=== PATIENT | female | born 1995 | race Hispanic/Latino ===

== ENCOUNTER 2017-07-09 18:27 | Inpatient (IN) | payer MEDICAID ==
[~2017-07-09 18:27] MED LIST: DOCU-116 PO; IBUP-2077 PO
[2017-07-09] MEDS ORDERED: OXYTOCIN-LR 20 UNITS/1000 ML 1,000 ML IV SCH (18:30)
[2017-07-09 19:11] LABS: HEMATOCRIT 35.7 % (36-48); MEAN CORPUSCULAR HEMOGLOBIN 26.7 pg (27.0-33.0); MEAN CORPUSCULAR HGB CONC 34.1 g/dL (32.0-36.0); MEAN CORPUSCULAR VOLUME 78.4 fL (79-99); PLATELET COUNT (AUTO) 228 K/uL (130-400); RED BLOOD CELL COUNT(AUTO) 4.56 MIL/uL (4.00-5.50); RED CELL DISTRIBUTION WIDTH 13.6 % (11.0-15.5)
[2017-07-09 19:22] LABS: APPEARANCE,URINE Clear (CLEAR); BILIRUBIN,URINE Negative (NEGATIVE); COLOR,URINE Dark Yellow (YELLOW); GLUCOSE, URINE (UA) Negative (NEGATIVE); KETONES,URINE Negative (NEGATIVE); LEUKOCYTE ESTERASE ,URINE Small (NEGATIVE); NITRATE,URINE Negative (NEGATIVE); OCCULT BLOOD,URINE Negative (NEGATIVE); PROTEIN,URINE Negative (NEGATIVE)
[2017-07-09 19:34] LABS: RBC,URINE None Seen /HPF (0-1); WBC,URINE 0-1 /HPF (0-1)
[2017-07-09 19:35] LABS: BACTERIA,URINE Few /HPF (None Seen); SQUAMOUS EPITHELIAL CELL,UR 30-50 /LPF (0-2)
[2017-07-09] MEDS: LACTATED RINGERS 1000ML 1,000 ML IV PRN (21:11)
[2017-07-10] MEDS: LACTATED RINGERS 1000ML 1,000 ML IV PRN (01:46)
[2017-07-10] MEDS ORDERED: OXYTOCIN 10 USP UNITS/ML 20 UNIT in LACTATED RINGERS 1000ML 1,000 ML IV SCH (03:00)
[2017-07-10] MEDS ORDERED: OXYTOCIN 10 USP UNITS/ML ONE ×2 (03:05→09:38)
[2017-07-10] MEDS ORDERED: NALOXONE HCL 0.4 MG/1 ML ML IV PRN (08:15)
[2017-07-10] MEDS ORDERED: EPHEDRINE SULFATE 50 MG/ML AMPULE IVP PRN (08:15)
[2017-07-10] MEDS ORDERED: LACTATED RINGERS 500 ML 500 ML IV PRN (08:15)
[2017-07-10] MEDS ORDERED: LIDOCAINE HCL 1% 20 ML VIAL ONE (09:37)
[2017-07-10] MEDS ORDERED: LANOLIN 30GM OINTMENT TP PRN (10:15)
[2017-07-10] MEDS ORDERED: WITCH HAZEL 1 PAD TP PRN (10:15)
[2017-07-10] MEDS ORDERED: DIPH,PERTUSS(ACELL),TET VAC/PF 0.5 ML VIAL IM PRN (10:15)
[2017-07-10] MEDS ORDERED: MEASLES/MUMPS/RUBELLA VACCINE, LIVE 0.5 ML/VIAL SQ PRN (10:15)
[2017-07-10] MEDS ORDERED: BENZOCAINE/LANOLIN/ALOE VERA 60 ML AEROSOL TP PRN (10:15)
[2017-07-10] MEDS ORDERED: ACETAMINOPHEN 325 MG TAB PO PRN (10:15)
[2017-07-10 12:03] VITALS: BP 120/73
[2017-07-10] MEDS ORDERED: PREN-154 PO (12:28)
[2017-07-10] MEDS ORDERED: NITR100C4 PO (12:28)
[2017-07-10 16:01] VITALS: BP 107/72
[2017-07-10] MEDS: IBUPROFEN 600 MG TABLET PO PRN (18:32)
[2017-07-10 19:19] VITALS: BP 114/72
[2017-07-10] MEDS: DOCUSATE SODIUM 100 MG CAP PO SCH (20:49)
[2017-07-10 23:04] VITALS: BP 124/64
[2017-07-11] MEDS: IBUPROFEN 600 MG TABLET PO PRN ×3 (00:35→20:16)
[2017-07-11 03:45] VITALS: BP 106/64
[2017-07-11 05:37] LABS: HEMATOCRIT 28.5 % (36-48); MEAN CORPUSCULAR HEMOGLOBIN 27.7 pg (27.0-33.0); MEAN CORPUSCULAR HGB CONC 35.2 g/dL (32.0-36.0); MEAN CORPUSCULAR VOLUME 78.8 fL (79-99); PLATELET COUNT (AUTO) 199 K/uL (130-400); RED BLOOD CELL COUNT(AUTO) 3.62 MIL/uL (4.00-5.50); RED CELL DISTRIBUTION WIDTH 13.4 % (11.0-15.5); WHITE BLOOD COUNT (AUTO) 9.3 K/uL (4.8-10.8)
[2017-07-11 07:13] VITALS: BP 105/69
[2017-07-11 07:27] LABS: HEPATITIS Bs ANTIGEN SCREEN P Negative (Negative)
[2017-07-11] MEDS: DOCUSATE SODIUM 100 MG CAP PO SCH ×2 (08:47→20:16)
[2017-07-11 11:28] VITALS: BP 97/58
[2017-07-11 15:15] VITALS: BP 140/77
[2017-07-11 19:59] VITALS: BP 125/82
[2017-07-11 23:26] VITALS: BP 114/71
[2017-07-12 03:05] VITALS: BP 99/58
[2017-07-12 07:43] VITALS: BP 112/71
[2017-07-12] MEDS: DOCUSATE SODIUM 100 MG CAP PO SCH (09:01)
[2017-07-12] MEDS: IBUPROFEN 600 MG TABLET PO PRN (09:02)
[2017-07-12 12:02] VITALS: BP 94/63
[2017-07-12 16:04] VITALS: BP 109/74
== END 2017-07-12 18:50 | disposition home or self-care (01) | DRG 560 ==
LOC: OBSVTOIN 18:27 → LDH 18:27 → WSH 07-10 12:06
PROVIDERS: ADMIT Obstetrics & Gynecology; ATTEND Obstetrics & Gynecology
PROC: 0KQM0ZZ Repair Perineum Muscle, Open Approach (ICD-10-PCS; principal; 2017-07-10)
PROC: 10E0XZZ Delivery of Products of Conception, External Approach (ICD-10-PCS; 2017-07-10)
PROC: 10907ZC Drainage of Amniotic Fluid, Therapeutic from Products of Conception, Via Natural or Artificial Opening (ICD-10-PCS; 2017-07-10)
PROC: 3E0234Z Introduction of Serum, Toxoid and Vaccine into Muscle, Percutaneous Approach (ICD-10-PCS; 2017-07-10)
PROC: 3E0234Z Introduction of Serum, Toxoid and Vaccine into Muscle, Percutaneous Approach (ICD-10-PCS; 2017-07-10)
DX: O70.1 Second degree perineal laceration during delivery (principal); D62 Acute posthemorrhagic anemia; Z23 Encounter for immunization; Z37.0 Single live birth; Z3A.39 39 weeks gestation of pregnancy
CPT/HCPCS: 36415; 81001; 82120; 85027; 86592; 86850; 86900; 86901; 87340; A4314; J2590; J7120